=== PATIENT | male | born 1935 | race Caucasian/White ===

== ENCOUNTER 2018-01-24 06:21 | Inpatient (IN) | payer OTHER ==
[2017-12-29 12:57] VITALS: BMI 29.0
--- NOTE | 2017-12-29 13:30 | PAT Medication Instructions ---
Service Date Dec 29, 2017. Current Home Medication List Amlodipine (Norvasc), 5 MG PO BID Calcium Ascorbate (Vitamin C), 500 MG PO QAM Calcium W/ Magnesium (Calcium Magnesium 750), 1 TAB PO BID Cod Liver Oil (Cod Liver Oil), 1 TAB PO QAM Zxsskoboofb-Lchvogwkwig-Wxi C- (Glucosamine Chondroitin), 1 TAB PO BID Misc Natural Products (Pumpkin Seed Oil), 1 TAB PO BID Multivitamin (Multivitamin), 1 TAB PO QAM Medication Instructions For Your Scheduled Surgery - Hold the following medications 2 weeks prior to surgery: Cod Liver Oil (Cod Liver Oil), 1 TAB PO QAM Cvkhztmsaas-Sgrywrrwygb-Vdy C- (Glucosamine Chondroitin), 1 TAB PO BID Misc Natural Products (Pumpkin Seed Oil), 1 TAB PO BID - Hold the following medications the morning of surgery: Calcium Ascorbate (Vitamin C), 500 MG PO QAM Calcium W/ Magnesium (Calcium Magnesium 750), 1 TAB PO BID Multivitamin (Multivitamin), 1 TAB PO QAM - Take the following medications the morning of surgery with a sip of water: Amlodipine (Norvasc), 5 MG PO BID - Take the following medications as scheduled the night before surgery: Calcium W/ Magnesium (Calcium Magnesium 750), 1 TAB PO BID If you have any questions please call us at [phone] or [phone] or [phone]
--- NOTE | 2017-12-29 14:15 | DIAGNOSTIC IMAGING REPORT ---
CHEST 2 VIEWS ROUTINE CLINICAL HISTORY: 82 years-old Male presenting with preoperative assessment. TECHNIQUE: PA and lateral views of the chest were obtained. COMPARISON: None. FINDINGS: Atherosclerosis of the aortic arch. Tortuosity of the descending thoracic aorta. Cardiac silhouette normal in size. Minimal basilar opacities. No pleural effusion or pneumothorax. Osseous structures normal. Upper abdomen normal. IMPRESSION: 1. No acute cardiopulmonary disease. Electronically signed by: Tremaine Nixon M.D. 12/29/2017 2:13 PM Dictated Date/Time: 12/29/2017 2:13 PM
[2017-12-29 14:37] LABS: BASO % 0.2 %; BASO ABS # 0.01 K/uL (0-0.2); EOS ABS # 0.05 K/uL (0-0.5); HEMATOCRIT 38.6 % (42-52); HEMOGLOBIN 13.3 g/dL (14.0-18.0); IG# 0.02 K/uL (0.00-0.02); LYMPH % 23.9 %; LYMPH ABS # 1.24 K/uL (1.2-3.4); MEAN CELL VOLUME 93.9 fL (80-100); MEAN CORPUSCULAR HEMOGLOBIN 32.4 pg (25-34); MEAN CORPUSCULAR HGB CONC 34.5 g/dl (32-36); MEAN PLATELET VOLUME 10.2 fL (7.4-10.4); MONO % 16.8 %; MONO ABS # 0.87 K/uL (0.11-0.59); NEUT % 57.7 %; PLATELET COUNT 108 K/uL (130-400); RED CELL DISTRIBUTION WIDTH CV 12.6 % (11.5-14.5); WHITE BLOOD COUNT 5.19 K/uL (4.8-10.8)
[2017-12-29 15:33] LABS: CALCIUM 9.6 mg/dl (8.5-10.1); CREATININE 1.62 mg/dl (0.60-1.40); POTASSIUM 4.3 mmol/L (3.5-5.1)
[~2018-01-24] VITALS: Ht 175.3 cm; Wt 90.2 kg
[2018-01-24] VITALS (10 sets, daily range): BP systolic 100–148; BP diastolic 62–79; PULSE 59–85; TEMP 36.2–36.6; O2SAT 90–96; Ht 175.3 cm; Wt 90.2 kg
[~2018-01-24 06:21] MED LIST: AMLO-110 PO; CALC1TAB25 PO; CALC500T72 PO; CEFAZOLIN 2000MG IV PUSH 15 ML IV SCH; CODCAP4 PO; GLUCTAB7 PO; LACTATED RINGER'S 1000ML 1,000 ML IV SCH; MISCCAP3 PO; MULT-506 PO
[2018-01-24] MEDS ORDERED: MIDAZOLAM HCL 1 MG/ML 2ML VIAL ONE (06:38)
[2018-01-24] MEDS ORDERED: FENTANYL CITRATE INJ 50 MCG/1 ML 2 ML VIAL ONE ×3 (06:38→09:08)
[2018-01-24] MEDS ORDERED: BUPIVACAINE/EPINEPHRINE 0.5% MPF 1:200,000 30 ML VIAL ONE (06:57)
[2018-01-24] MEDS ORDERED: BACITRACIN 50000 UNIT VIAL ONE (06:57)
[2018-01-24] MEDS ORDERED: LISI-729 PO (07:22)
--- NOTE | 2018-01-24 07:26 | History & Physical Bridge Note ---
H&P Re-Evaluation Bridge Note: I have examined the patient, reviewed the History & Physical and in the interval since the performance of the History & Physical I have noted the following changes of clinical significance: No changes noted
--- NOTE | 2018-01-24 07:27 | History and Physical ---
History & Physical Date Jan 24, 2018. Chief Complaint Back and leg pain History of Present Illness The patient is a 82 year old male with complaints of back and leg pain Additional History Hepatic Disease: No Endocrine Disorder: No Kidney Disease: No Hypertension: Yes Heart Disease: No Bleeding Tendencies: No Infectious Diseases: No Allergies Coded Allergies: No Known Allergies (Unverified , 01/24/18) Home Medications Scheduled Amlodipine (Norvasc), 10 MG PO DAILY Calcium Ascorbate (Vitamin C), 500 MG PO QAM Calcium W/ Magnesium (Calcium Magnesium 750), 1 TAB PO BID Cod Liver Oil (Cod Liver Oil), 1 TAB PO QAM Erpesfcbpgo-Knduyukzcsf-Hvy C- (Glucosamine Chondroitin), 1 TAB PO BID Lisinopril (Zestril), 5 MG PO DAILY Misc Natural Products (Pumpkin Seed Oil), 1 TAB PO BID Multivitamin (Multivitamin), 1 TAB PO QAM Physical Examination Skin: warm/dry, no rash Eyes: normal inspection, EOMI, sclerae normal ENT: normal ENT inspection, pharynx normal Head: normocephalic, atraumatic Neck: supple, no adenopathy, trachea midline Respiratory/Chest: lungs clear, normal breath sounds, no respiratory distress Cardiovascular: regular rate, rhythm, no edema, no murmur Abdomen / GI: normal bowel sounds, non tender Back: normal inspection Extremities: normal inspection, normal range of motion Neurologic/Psych: no motor/sensory deficits, alert, normal reflexes, oriented x 3 Diagnosis Lumbar spinal stenosis Plan of Treatment Lumbar decompression and fusion L4-5
[2018-01-24] MEDS ORDERED: PROMETHAZINE HCL INJ 6.25 MG in SODIUM CHLORIDE 0.9% 50ML 50 ML IV PRN (07:30)
[2018-01-24] MEDS ORDERED: HYDROmorphone INJ 1 MG/ML SYR IV PRN (07:30)
[2018-01-24] MEDS ORDERED: FENTANYL CITRATE INJ 50 MCG/1 ML 2 ML VIAL IV PRN (07:30)
[2018-01-24] MEDS ORDERED: EpHEDrine SULFATE INJ 50 MG/ML AMP IV PRN (07:30)
[2018-01-24] MEDS ORDERED: ONDANSETRON INJ 2 MG/ML 2 ML VIAL IV PRN ×2 (07:30→09:15)
[2018-01-24] MEDS ORDERED: ATROPINE SULFATE 0.1 MG/ML 5ML SYR IV PRN (07:30)
[2018-01-24] MEDS ORDERED: HYDROmorphone INJ 2 MG/ML SYR/VIAL ONE (07:57)
[2018-01-24] MEDS ORDERED: FLOSEAL HEMOSTATIC MATRIX 10ML TOP ONE (08:58)
--- NOTE | 2018-01-24 09:06 | [facility] Operative Report ---
Operative Report Operative Date Jan 24, 2018. Pre-Operative Diagnosis Lumbar Spinal Stenosis Post-Operative Diagnosis Lumbar Spinal Stenosis Procedure(s) Performed 1. Lumbar decompression medial facetectomies foraminotomies L3-4 L4-5. #2 posterior spinal fusion L4-5. #3 placement posterior instrumentation L4-5. #4 interbody fusion L4-5. #5 placement peek cage 13 x 26 mm at L4-5. #6 placement of locally harvested morselized autograft in the posterior lateral gutters. #7 placement of infuse collagen sponge, Nast graft in the posterior lateral gutters and ostial amp in the interbody space. Surgeon Dr. Mendoza Leach Conditioning Machine Operator Surgeon(s) Ashlee Rodriguez PA-C Estimated Blood Loss 125ml Findings Severe spinal stenosis Specimens None per surgeon Anesthesia Type General Description of Procedure Patient was met with preoperatively case discussed all questions addressed. After informed consent obtained patient was taken to the operative suite underwent intubation and placed in a prone position on the Arnoldo table on top of the Julius frame. All bony prominences were well-padded eyes inspected to ensure no external pressure placed upon the. This point the lumbar spine was prepped and draped in normal sterile fashion. Sharp dissection with the assistance of Bovie cautery was performed down to and exposing the lamina and transverse processes of L4 and L5 bilaterally. From a caudocephalad fashion complete laminectomy of L4 partial laminectomy of L3 was performed addressing severe lateral recess and foraminal stenosis. Pedicle screws were then placed in L4 and L5 bilaterally with the assistance of fluoroscopy and the purposes sinai placed. Through a transforaminal approach on left complete discectomy of L4 -5 was performed endplates created to subcortical bleeding bone and a 13 x 26 mm peek cage filled with ostium bone graft tapped in position. The rods were then locked in final position bilaterally. The transverse processes of L4 and L5 burred to subcortical bleeding bone. Infuse collagen sponge mesh graft and locally harvested morselized autograft was placed in the posterior gutters. 15 round STANISLAW drain was inserted. Incision was then closed with 1 Vicryl fascia 2-0 Vicryl subcutaneously 4-0 Monocryl for fashion closure Steri-Strips sterile dressings placed. Patient weakened taken PACU stable condition. Please note Ashlee Multani was present throughout the entire procedure involved in patient positioning complex portions of the surgery and fashion closure. I attest to the content of the Intraoperative Record and any orders documented therein. Any exceptions are noted below.
[2018-01-24] MEDS ORDERED: SODIUM CHLORIDE 0.9% 1000ML 1,000 ML IV SCH (09:07)
[2018-01-24] MEDS ORDERED: PROPOFOL IV EMULSION 10 MG/ML 20 ML VIAL IV ONE (09:10)
[2018-01-24] MEDS ORDERED: EpHEDrine SULFATE 50MG/5ML SYR ONE (09:10)
[2018-01-24] MEDS ORDERED: LIDOCAINE HCL 2% 2 ML VIAL (20MG/ML) ONE (09:10)
[2018-01-24] MEDS ORDERED: PHENYLEPHRINE 100MCG/ML 5ML SYR ONE (09:10)
[2018-01-24] MEDS ORDERED: ROCURONIUM BROMIDE 10 MG/ML 5 ML VIAL IV ONE (09:10)
[2018-01-24] MEDS ORDERED: DEXAMETHASONE SOD INJ 4 MG/ML VIAL ONE (09:10)
[2018-01-24] MEDS ORDERED: ONDANSETRON INJ 2 MG/ML 2 ML VIAL ONE (09:10)
[2018-01-24] MEDS ORDERED: NEOSTIGMINE METHYLSULFATE 1 MG/ML 10ML VIAL ONE (09:10)
[2018-01-24] MEDS ORDERED: GLYCOPYRROLATE INJ 0.2 MG/ML VIAL ONE (09:10)
[2018-01-24] MEDS ORDERED: DO NOT ADMINISTER FLU VACCINE PRN (09:15)
[2018-01-24] MEDS ORDERED: DO NOT ADMINISTER PNEUMOCOCCAL VACCINE PRN (09:15)
[2018-01-24] MEDS ORDERED: ACETAMINOPHEN IV 100 ML IV PRN (09:15)
[2018-01-24] MEDS ORDERED: NALOXONE HCL 0.4 MG/1 ML VIAL/CARP IV PRN (09:15)
[2018-01-24] MEDS ORDERED: hydrOXYzine HCL 25 MG TAB PO PRN (09:15)
[2018-01-24] MEDS ORDERED: BISACODYL 10 MG SUPP PR PRN (09:15)
[2018-01-24] MEDS ORDERED: ACETAMINOPHEN 500 MG TAB PO PRN (09:15)
[2018-01-24] MEDS ORDERED: MAGNESIUM HYDROXIDE SUSP 30 ML UDC PO PRN (09:15)
[2018-01-24] MEDS ORDERED: LORAZEPAM 0.5 MG TAB PO PRN (09:15)
[2018-01-24] MEDS ORDERED: PROMETHAZINE HCL INJ 12.5 MG in SODIUM CHLORIDE 0.9% 50ML 50 ML IV PRN (09:15)
[2018-01-24] MEDS ORDERED: ALUMINUM/MAGNESIUM SUSP 30 ML UDC PO PRN (09:15)
[2018-01-24] MEDS ORDERED: FAMOTIDINE 20 MG TAB PO PRN (09:15)
[2018-01-24] MEDS ORDERED: METOCLOPRAMIDE HCL INJ 5 MG/ML 2 ML VIAL IV PRN (09:15)
[2018-01-24] MEDS ORDERED: SOD PHOSPHATE/SOD BIPHOSPHATE ENEMA 132 ML BTL PR PRN (09:15)
[2018-01-24] MEDS ORDERED: LORAZEPAM INJ 0.5 MG in SYRINGE 0.75 ML IV PRN (09:15)
[2018-01-24] MEDS ORDERED: HYDROmorphone HCL 0.5MG/ML 50 ML CASSETTE ONE (09:22)
--- NOTE | 2018-01-24 09:28 | DIAGNOSTIC IMAGING REPORT ---
LUMBAR SPINE, INTRAOPERATIVE FLUOROSCOPY HISTORY: L4-L5 decompression and fusion. FLUOROSCOPY TIME: 12 seconds. FINDINGS: Intraoperative fluoroscopy was provided for the lumbar spine. 2 fluoroscopic spot images were obtained. Posterior decompression and fusion at L4-L5 with pedicle screws and rods. The hardware appears intact. IMPRESSION: Fluoroscopy provided for a L4-L5 posterior decompression and fusion.. Electronically signed by: Antoine Anguiano M.D. 01/24/2018 9:27 AM Dictated Date/Time: 01/24/2018 9:26 AM
[2018-01-24] MEDS: HYDROmorphone HCL 0.5MG/ML 50 ML CASSETTE IV PRN ×4 (09:31→22:58)
--- NOTE | 2018-01-24 10:02 | Anesthesiology Progress Note ---
Anesthesia Post Op Note Date & Time Jan 24, 2018 at 10:02 Vital Signs Pain Intensity: 0 Vital Signs Past 12 Hours Date Time Temp Pulse Resp B/P (MAP) Pulse Ox O2 Delivery O2 Flow Rate FiO2 01/24/18 09:52 68 14 01/24/18 09:52 67 14 94 01/24/18 09:51 116/65 01/24/18 09:47 68 15 95 01/24/18 09:47 68 15 01/24/18 09:46 123/67 01/24/18 09:42 66 14 01/24/18 09:42 66 14 95 01/24/18 09:41 121/69 01/24/18 09:40 71 19 01/24/18 09:40 71 19 96 01/24/18 09:36 126/72 01/24/18 09:35 75 18 01/24/18 09:35 75 18 96 01/24/18 09:31 125/68 01/24/18 09:30 78 19 97 01/24/18 09:30 80 19 01/24/18 09:26 118/74 01/24/18 09:25 87 13 97 01/24/18 09:25 88 13 01/24/18 09:21 132/70 01/24/18 09:20 90 15 01/24/18 09:20 36.0 89 16 132/70 98 Oxymask 10 01/24/18 09:20 91 15 98 01/24/18 06:51 36.6 18 148/79 94 Room Air Notes Mental Status: alert / awake / arousable, participated in evaluation Pt Amnestic to Procedure: Yes Nausea / Vomiting: adequately controlled Pain: adequately controlled Airway Patency, RR, SpO2: stable & adequate BP & HR: stable & adequate Hydration State: stable & adequate Anesthetic Complications: no major complications apparent
[2018-01-24] MEDS ORDERED: ESMOLOL HCL 10 MG/ML 10 ML VIAL ONE (11:45)
[2018-01-24] MEDS ORDERED: AMLO-114 PO (11:47)
--- NOTE | 2018-01-24 11:55 | Medical Consult ---
Consultation Date of Consultation: Jan 24, 2018. Attending Physician: Mendoza Leach D.O. Reason for Consultation: Medical management History of Present Illness Pt is 82 y/o M with PMH HTN seen for medical management after Lumbar decompression and spinal fusion by Dr Leach today. Patient reports pain is controlled at this time and reports having return of sensation to bilateral legs. Patient reports last BM yesterday, has not felt like he passed gas yet since surgery. Denies any nausea or vomiting. Denies fever/chills, diaphoresis , COLEY, dizziness, syncope, vision changes, neck pain, CP, SOB, orthopnea, palpitations, cough, sore throat, choking, otalgia, rhinorrhea, abdominal pain, paresthesias, extremity edema, rashes, urinary symptoms. 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 Alcohol Use: Rarely Drug Use: none Marital Status: Housing Status: lives with significant other Allergies Coded Allergies: No Known Allergies (Unverified , 01/24/18) Current Inpatient Medications Current Inpatient Medications Medications (Trade) Dose Ordered Sig/Kenneth Route Start Time Stop Time Status Last Admin Dose Admin Cefazolin Sodium 15 ml @ 3.75 mls/ min PREOP IV 01/24/18 06:00 01/24/18 18:00 01/24/18 07:34 3.75 MLS/MIN Lactated Ringer's 1,000 ml @ 15 mls/hr Q24H IV 01/24/18 06:00 01/25/18 05:59 01/24/18 07:13 15 MLS/HR Fentanyl Citrate (Fentanyl Inj) 50 mcg Q5M PRN IV 01/24/18 07:30 01/24/18 12:30 Hydromorphone HCl (Dilaudid Inj) 0.5 mg Q5M PRN IV 01/24/18 07:30 01/24/18 12:30 Ondansetron HCl (Zofran Inj) 4 mg ONE PRN IV 01/24/18 07:30 01/24/18 12:30 Promethazine HCl 6.25 mg/Sodium Chloride 50.25 ml @ 202 mls/hr ONE PRN IV 01/24/18 07:30 01/24/18 12:30 Ephedrine Sulfate (EpHEDrine SULFATE INJ) 5 mg Q5M PRN IV 01/24/18 07:30 01/24/18 12:30 Atropine Sulfate (Atropine Sulfate 0.1mg/ml Inj) 0.5 mg Q1M PRN IV 01/24/18 07:30 01/24/18 12:30 Promethazine HCl 12.5 mg/Sodium Chloride 50.5 ml @ 202 mls/hr Q6H PRN IV 01/24/18 09:15 02/23/18 09:14 Ondansetron HCl (Zofran Inj) 4 mg Q6H PRN IV 01/24/18 09:15 02/23/18 09:14 Metoclopramide HCl (Reglan Inj) 10 mg Q6H PRN IV 01/24/18 09:15 02/23/18 09:14 Lorazepam (Ativan Tab) 0.5 mg Q8H PRN PO 01/24/18 09:15 02/23/18 09:14 Lorazepam 0.5 mg/ Syringe 1 ml @ 1 mls/min Q8H PRN IV 01/24/18 09:15 02/23/18 09:14 Pneumococcal Polysaccharide Vaccine 1 ea PRN PRN N/A 01/24/18 09:15 02/23/18 09:14 Influenza Virus Vacc Triv Types A&B 1 ea PRN PRN N/A 01/24/18 09:15 02/23/18 09:14 Polyethylene (Miralax Powder Packet) 17 gm Q6 PO 01/26/18 06:00 02/25/18 05:59 Bisacodyl (Dulcolax Supp) 10 mg DAILY PRN DC 01/24/18 09:15 02/23/18 09:14 Magnesium Hydroxide (Milk Of Magnesia Susp) 30 ml DAILY PRN PO 01/24/18 09:15 02/23/18 09:14 Hydromorphone HCl (Dilaudid Inj) 0.5-1mg prn moder... Q3H PRN IV 01/25/18 06:00 02/08/18 05:59 Oxycodone HCl (Roxicodone Immediate Rel Tab) 5-10mg prn moderate to sev... Q4H PRN PO 01/25/18 06:00 02/08/18 05:59 Cefazolin Sodium 2000 mg/Syringe 15 ml @ 3.75 mls/ min Q8H IV 01/24/18 16:00 01/25/18 00:03 Sodium Chloride 1,000 ml @ 150 mls/hr Q6H40M IV 01/24/18 09:07 01/25/18 06:00 Acetaminophen (Tylenol Tab) 1,000 mg Q8H PRN PO 01/24/18 09:15 02/23/18 09:14 Acetaminophen 100 ml @ 400 mls/hr Q8H PRN IV 01/24/18 09:15 02/23/18 09:14 Naloxone HCl (Narcan Inj) 0.1 mg Q5M PRN IV 01/25/18 06:00 02/24/18 05:59 Senna/Docusate Sodium (Senokot S Tab) 2 tab HS PO 01/24/18 21:00 02/23/18 20:59 Sodium Biphosphate/ Sodium Phosphate (Fleet Enema) 132 ml ONE PRN DC 01/24/18 09:15 02/23/18 09:14 Hydroxyzine HCl (Vistaril Tab) 25 mg Q8H PRN PO 01/24/18 09:15 02/23/18 09:14 Al Hydroxide/Mg Hydroxide (Maalox Susp) 30 ml Q6H PRN PO 01/24/18 09:15 02/23/18 09:14 Famotidine (Pepcid Tab) 20 mg Q12 PRN PO 01/24/18 09:15 02/23/18 09:14 Diphenhydramine HCl (Benadryl Cap) 25 mg Q6H PRN PO 01/24/18 09:15 02/23/18 09:14 Miscellaneous Information (Discontinue RESEARCH INTERVIEWER) 1 ea TODAY@0600 N/A 01/25/18 06:00 01/25/18 06:01 Naloxone HCl (Narcan Inj) 0.1 mg Q5M PRN IV 01/24/18 09:15 01/25/18 06:00 Hydromorphone HCl (Dilaudid Pharmacy Clinical Specialist) 25 mg PRN PRN IV 01/24/18 09:15 01/25/18 06:00 01/24/18 10:32 25 MG Sodium Chloride 1,000 ml @ 15 mls/hr Q24H IV 01/24/18 09:07 01/25/18 06:00 Amlodipine Besylate (Norvasc Tab) 10 mg DAILY PO 01/25/18 09:00 02/24/18 08:59 Lisinopril (Zestril Tab) 5 mg DAILY PO 01/25/18 09:00 02/24/18 08:59 Review of Systems See HPI for pertinent positives & negatives. All other systems reviewed and were otherwise negative Physical Exam Date Time Temp Pulse Resp B/P (MAP) Pulse Ox O2 Delivery O2 Flow Rate FiO2 01/24/18 11:04 61 16 118/67 (84) 95 Nasal Cannula 4.0 01/24/18 10:35 93 Nasal Cannula 4.0 01/24/18 10:35 Nasal Cannula 4.0 01/24/18 10:35 36.4 60 16 119/67 (84) 93 Nasal Cannula 4.0 01/24/18 10:21 118/64 01/24/18 10:18 59 14 94 01/24/18 10:18 59 14 01/24/18 10:16 120/63 01/24/18 10:13 59 14 01/24/18 10:13 60 14 94 01/24/18 10:12 60 17 94 01/24/18 10:12 60 17 01/24/18 10:11 115/63 01/24/18 10:11 36.3 95 Nasal Cannula 4 01/24/18 10:07 60 16 01/24/18 10:07 60 16 94 01/24/18 10:06 119/63 01/24/18 10:02 61 16 01/24/18 10:02 60 16 94 01/24/18 10:01 116/66 01/24/18 09:58 65 17 01/24/18 09:58 65 17 94 01/24/18 09:56 117/66 01/24/18 09:53 68 17 97 01/24/18 09:53 68 17 01/24/18 09:52 68 14 01/24/18 09:52 67 14 94 01/24/18 09:51 116/65 01/24/18 09:47 68 15 95 01/24/18 09:47 68 15 01/24/18 09:46 123/67 01/24/18 09:42 66 14 01/24/18 09:42 66 14 95 01/24/18 09:41 121/69 01/24/18 09:40 71 19 01/24/18 09:40 71 19 96 01/24/18 09:36 126/72 01/24/18 09:35 75 18 01/24/18 09:35 75 18 96 01/24/18 09:31 125/68 01/24/18 09:30 78 19 97 01/24/18 09:30 80 19 01/24/18 09:26 118/74 01/24/18 09:25 87 13 97 01/24/18 09:25 88 13 01/24/18 09:21 132/70 01/24/18 09:20 90 15 01/24/18 09:20 36.0 89 16 132/70 98 Oxymask 10 01/24/18 09:20 91 15 98 01/24/18 06:51 36.6 18 148/79 94 Room Air General Appearance: WD/WN, no apparent distress Head: normocephalic, atraumatic Eyes: normal inspection, sclerae normal ENT: hearing grossly normal, pharynx normal, + pertinent finding (Mucous membranes moist) Neck: supple, no JVD, trachea midline Respiratory/Chest: lungs clear, normal breath sounds, no respiratory distress Cardiovascular: regular rate, rhythm, no murmur, normal peripheral pulses Abdomen/GI: normal bowel sounds, non tender, soft Back: + pertinent finding (Surgical dressing in place) Extremities/Musculoskelatal: normal inspection, normal capillary refill, no pedal edema, + pertinent finding (Distal pulses intact. Sensation to light touch intact. Bilateral pedal pushes and pulls intact) Neurologic/Psych: alert, normal mood/affect, oriented x 3 Skin: normal color, warm/dry Assessment & Plan Pt post op day# 0 S/P lumbar decompression L3-L4, L4-L5, spinal fusion by Dr Leach -pain management per ortho -wound management per ortho -PT/OT as appropriate -DVT prophylaxis per ortho -incentive spirometry -monitor H&H for acute blood loss anemia HTN BP stable -Continue amlodipine, lisinopril CKD III Cr: 1.6, GFR: 39 on 12/29/17 -Monitor renal functions -Avoid nephrotoxic agents when possible -if worsening renal functions tomorrow, consider holding lisinopril DVT Prophylaxis -Per ortho Disposition admitted [facility] Full Code Follows with Dr Adriel Lyn for routine care Pt was seen with Dr Villarreal. See addendum. Pt will be followed by Dr Carvalho remaining hospital course. ADDENDUM: I have seen and examined the patient and agree with the assessment and plan as above. Phil, DO Additional Copies To Adriel Lyn D.O.
[2018-01-24] MEDS ORDERED: RXC5 PO (14:35)
--- NOTE | 2018-01-24 14:36 | Discharge Instructions ---
Discharge Instructions Date of Service Jan 24, 2018. Admission Reason for Admission: Spinal Stenosis Discharge Discharge Diagnosis / Problem: lumbar stenosis Discharge Goals Goal(s): Improve function Activity Recommendations Activity Limitations: per Instructions/Follow-up section . Instructions / Follow-Up Instructions / Follow-Up ACTIVITY RECOMMENDATIONS: SELF CARE INSTRUCTIONS AFTER THORACIC/LUMBAR FUSIONS 1. You may walk to your tolerance. It is good exercise for your legs and back. Expect some back and intermittent leg aches and pains. 2. You may perform "counter-top" level activities (make a sandwich, obed with a project, etc.). 3. No bending or lifting of more than 10 pounds or back twisting of any nature (roll like a log when turning in bed). 4. You may ride in a car for 20-30 minutes at a time. No driving until after your first visit with your doctor. 5. Frequent changes of position and restricting sitting to 30 minutes at a time will help limit the amount of back spasms and stiffness you may experience. 6. You may discontinue the use of ambulatory aids (cane, crutches, etc.) once your strength and confidence allow. 7. You may coal dumping equipment operator the shower and let water strike your incision when you arrive home at least once daily. Do not take a tub bath, sit in a hot tub or go into a swimming pool until after your first recheck in the office. SPECIAL CARE INSTRUCTIONS: VERY IMPORTANT TO READ AND REVIEW A. Your surgical incision has been closed with a cosmetic suture under the skin that will dissolve in about 6 weeks. In 14 days, you can use a pair of clean scissors and cut the suture that is left outside of the skin at the ends of your incision. 1. The small skin tapes can be removed 7 days after surgery if they have not fallen off by that point. 2. You may keep the wound open to air as much as possible to promote healing after post-op day number 5 unless told otherwise by your doctor. 3. If you think the wound looks like it is becoming infected (redness or worsening drainage) and/or you are experiencing fever, chill or worsening back pain and muscle spasms, contact the office so that we may evaluate you as soon as possible. B. Complications are uncommon, but please contact us if you have any signs or symptoms of: 1. wound infection (fever higher than 102.5 degrees F, redness, separation of wound, drainage, or increasing pain from the incision) 2. blood clots in legs (pain, swelling, redness and warmth in legs) 3. urinary tract infection (fever higher than 102.5 degrees F, burning upon urination or increased frequency of urination) 4. nerve problems (inability to walk on your toes or heels, numbness, loss of bowel or bladder control) 5. any other symptoms that concern you C. Please call the office at if you have any concerns or questions about your operation or recovery. D. No smoking! Smoking drastically decreases the chance of a solid fusion. E. Do not take any anti-inflammatory medications (Indocin, Advil, Motrin, Aspirin, Naprosyn, etc.) as these may inhibit the chance of a solid fusion. Tylenol is okay to take for pain. MANAGING PAIN AFTER SPINAL SURGERY 1. Narcotic medication is intended for short-term use and will be provided for surgical pain. Surgical pain usually lasts for a period of 4-6 weeks. Narcotic medication includes Percocet, Vicodin, Darvocet, Tylenol #3 or Lortab. 2. Longer-term pain is more appropriately treated with non-narcotic medication such as Tylenol ES. 3. Muscle spasm is not appropriately treated with narcotics. Muscle relaxers such as Soma, Flexeril or Skelaxin can be used along with Tylenol ES. 4. Remember that we all live with some "aches and pains". This is not unusual or uncommon after an injury or as we get older. a. Back pain is expected and may include muscle spasms for 4 to 6 weeks after surgery. The pain should gradually improve. If the pain worsens for no apparent reason, please contact the office. b. Intermittent leg pain may also be experienced and should not be concerned about unless it worsens for no apparent reason. If so, please contact the office. 5. We will provide appropriate medication within the normal guidelines of their prescribed use. We will also be very cautious and aware of potential abuse and extended duration of patients' medication needs. a. Pain medications are for your comfort and to assist with sleep and rest so that the tissue can heal. They are not provided in order to return to normal activity and should not be used through the day. To do so or worsening pain at night can result from ongoing tissue damage and development of tolerance to the prescribed medicine. 6. Please allow 2-3 days to process refills. Prescriptions will not be mailed but must be picked up at the office. FOLLOW UP VISIT: Keep your scheduled follow-up appointment. Any questions, please call the office at . Current Hospital Diet Patient's current hospital diet: Regular Diet Discharge Diet Recommended Diet: Regular Diet Procedures Procedures Performed: 1. Lumbar decompression medial facetectomies foraminotomies L3-4 L4-5. #2 posterior spinal fusion L4-5. #3 placement posterior instrumentation L4-5. #4 interbody fusion L4-5. #5 placement peek cage 13 x 26 mm at L4-5. #6 placement of locally harvested morselized autograft in the posterior lateral gutters. #7 placement of infuse collagen sponge, Nast graft in the posterior lateral gutters and ostial amp in the interbody space. Pending Studies Studies pending at discharge: no Medical Emergencies . Who to Call and When: Medical Emergencies: If at any time you feel your situation is an emergency, please call 911 immediately. . Non-Emergent Contact Non-Emergency issues call your: Primary Care Provider . "Provider Documentation" section prepared by Mendoza Leach. .
[2018-01-24] MEDS: CEFAZOLIN IV 2,000 MG in SYRINGE 0 ML IV SCH (15:50)
[2018-01-24] MEDS: SODIUM CHLORIDE 0.9% 1000ML 1,000 ML IV SCH ×2 (15:50→22:11)
[2018-01-24] MEDS ORDERED: COUGH DROP (SUGAR FREE) LOZ 24 LOZ/1 BOX LOZ ONE (18:41)
[2018-01-24] MEDS ORDERED: COUGH DROP (SUGAR FREE) LOZ 24 LOZ/1 BOX LOZ PRN (19:00)
[2018-01-24] MEDS ORDERED: NURSING DECISION MEDICATION ORDER SCH (19:00)
[2018-01-24] MEDS: DOCUSATE SODIUM/SENNA 50/8.6MG TAB PO SCH (20:45)
[2018-01-25] MEDS: CEFAZOLIN IV 2,000 MG in SYRINGE 0 ML IV SCH (00:21)
[2018-01-25 02:55] VITALS: BP 142/69; PULSE 77; TEMP 36.4; O2SAT 94
[2018-01-25] MEDS: SODIUM CHLORIDE 0.9% 1000ML 1,000 ML IV SCH ×2 (04:46→19:44)
[2018-01-25] MEDS ORDERED: NURSING VERBAL MED ORDER ONE ×2 (05:45→21:00)
[2018-01-25] MEDS ORDERED: NALOXONE HCL 0.4 MG/1 ML VIAL/CARP IV PRN (06:00)
[2018-01-25] MEDS ORDERED: DC PCA SCH (06:00)
[2018-01-25] MEDS ORDERED: OXYCODONE HCL IR 5 MG TAB (IMMEDIATE RELEASE) PO PRN (06:00)
[2018-01-25] MEDS ORDERED: HYDROmorphone INJ 0.5 MG/0.5 ML SYR IV PRN (06:00)
[2018-01-25 06:30] LABS: HEMATOCRIT 28.3 % (42-52); HEMOGLOBIN 9.9 g/dL (14.0-18.0); IG# 0.04 K/uL (0.00-0.02); LYMPH % 8.8 %; LYMPH ABS # 0.73 K/uL (1.2-3.4); MEAN CELL VOLUME 93.4 fL (80-100); MEAN CORPUSCULAR HEMOGLOBIN 32.7 pg (25-34); MEAN PLATELET VOLUME 9.9 fL (7.4-10.4); MONO % 13.3 %; NEUT % 77.4 %; NEUT ABS # 6.43 K/uL (1.4-6.5); PLATELET COUNT 101 K/uL (130-400); RED CELL DISTRIBUTION WIDTH SD 40.6 fL (36.4-46.3)
[2018-01-25 07:02] LABS: CALCIUM 8.2 mg/dl (8.5-10.1); CREATININE 1.74 mg/dl (0.60-1.40); POTASSIUM 4.6 mmol/L (3.5-5.1)
[2018-01-25 07:15] VITALS: BP 125/70; PULSE 80; TEMP 36.5; O2SAT 92
--- NOTE | 2018-01-25 07:44 | Anesthesiology Progress Note ---
Anesthesia Post Op Note Date & Time Jan 25, 2018 at 07:43 Vital Signs Vital Signs Past 12 Hours Date Time Temp Pulse Resp B/P (MAP) Pulse Ox O2 Delivery O2 Flow Rate FiO2 01/25/18 07:15 36.5 80 18 125/70 (88) 92 Room Air 01/25/18 02:55 36.4 77 18 142/69 (93) 94 Room Air 01/25/18 00:20 Room Air 01/24/18 22:54 36.4 85 16 115/64 (81) 90 Room Air 01/24/18 20:07 36.2 82 16 142/66 (91) 96 Room Air Notes Mental Status: alert / awake / arousable, participated in evaluation Pt Amnestic to Procedure: Yes Nausea / Vomiting: adequately controlled Pain: adequately controlled Airway Patency, RR, SpO2: stable & adequate BP & HR: stable & adequate Hydration State: stable & adequate Anesthetic Complications: no major complications apparent
--- NOTE | 2018-01-25 08:16 | Clinical Documentation Query ---
CLINICAL DOCUMENTATION QUERY 82 yo male admitted for spinal fusion. Post-surgical hgb = 9.9, trending down from initial 13. In your clinical opinion is this patient being managed for: ( x ) Acute blood loss anemia ( ) Not Agree ( ) Other explanation of clinical findings (Please Explain) ( ) Unable to determine (Please Define) ( ) Need to Discuss The medical record reflects the following clinical findings, treatment, and risk factors. Clinical Indicators: As above Treatment: Serial CBCs, type and screen 2 units PRBCs Risk Factors: Age, s/p surgical event Please clarify and document your clinical opinion in the progress notes and discharge summary. Terms such as "probable", "suspected", "likely", "questionable", "possible", or "still to be ruled out" are acceptable. IF IN AGREEMENT, YOU MUST DOCUMENT ABOVE DIAGNOSTIC STATEMENT IN DAILY PROGRESS NOTES AND DISCHARGE SUMMARY. This document is not part of the patient's record. Thank You, Adamaris Malone RN [phone]
[2018-01-25 08:40] VITALS: BP 107/60; PULSE 94
[2018-01-25] MEDS: LISINOPRIL 5 MG TAB PO SCH (08:41)
[2018-01-25] MEDS: AMLODIPINE BESYLATE 5 MG TAB PO SCH (08:42)
[2018-01-25] MEDS ORDERED: AMLODIPINE BESYLATE 5 MG TAB PO SCH (09:00)
--- NOTE | 2018-01-25 13:27 | Progress Note ---
Progress Note Date of Service Jan 25, 2018. Progress Note Back pain is controlled leg symptoms are markedly improved. On exam he is in a chair at the bedside has good strength testing appears comfortable. Assessment status post lumbar decompression fusion. Plan at this time will continue physical therapy advance his bowel regiment anticipate home tomorrow.
[2018-01-25] MEDS ORDERED: KETOROLAC TROMETHAMINE 15 MG/ML VIAL IV. PRN (13:30)
[2018-01-25 16:28] VITALS: BP 120/70; PULSE 73; TEMP 36.3; O2SAT 91
--- NOTE | 2018-01-25 18:51 | Progress Note ---
Progress Note Date of Service Jan 25, 2018. Progress Note Medical consultation follow up note Subjective: Patient is not in acute distress, Is ambulatory and not in pain General Appearance: no apparent distress Head: normocephalic, atraumatic Eyes: normal inspection, sclerae normal Neck: supple, no JVD, trachea midline Respiratory/Chest: lungs clear, normal breath sounds, no respiratory distress Cardiovascular: regular rate, rhythm, no murmur, normal peripheral pulses Abdomen/GI: normal bowel sounds, non tender, soft Back: Surgical dressing in place with STANISLAW drain draining serosanguineous fluid Extremities/Musculoskelatal: ambulatory Neurologic/Psych: alert, normal mood/affect, oriented x 3 Skin: normal color, warm/dry Assessment & Plan Lumbar Spinal Stenosis with Procedures Performed on 01/24/18 by orthopedics: 1. Lumbar decompression medial facetectomies foraminotomies L3-4 L4-5. #2 posterior spinal fusion L4-5. #3 placement posterior instrumentation L4-5. #4 interbody fusion L4-5. #5 placement peek cage 13 x 26 mm at L4-5. #6 placement of locally harvested morselized autograft in the posterior lateral gutters. #7 placement of infuse collagen sponge, Nast graft in the posterior lateral gutters and ostial amp in the interbody space. Anemia with Hgb 9.9 in a patient who is post-op and a STANISLAW drain with serosanguineous fluid -patient is asymptomatic and does not need blood transfusion for the blood loss anemia -DVT prophylaxis per ortho acute kidney injury on CKD stage III -patient would benefit from further IV fluids as creatine trended up from baseline, IV fluid 100cc/hr normal saline ordered -can continue lisinopril for blood pressure control HTN BP stable: Continue amlodipine, lisinopril
[2018-01-25] MEDS: DOCUSATE SODIUM/SENNA 50/8.6MG TAB PO SCH (20:57)
[2018-01-25 22:53] VITALS: BP 129/73; PULSE 71; TEMP 36.9; O2SAT 91
[2018-01-26] MEDS: SODIUM CHLORIDE 0.9% 1000ML 1,000 ML IV SCH ×2 (05:24→15:09)
[2018-01-26] MEDS ORDERED: POLYETHYLENE (MIRALAX) 17 GM PACK PO SCH (06:00)
[2018-01-26 07:34] VITALS: BP 136/74; PULSE 76; TEMP 36.8; O2SAT 92
[2018-01-26] MEDS: LISINOPRIL 5 MG TAB PO SCH (08:25)
[2018-01-26] MEDS: AMLODIPINE BESYLATE 5 MG TAB PO SCH (08:25)
[2018-01-26 10:28] LABS: HEMATOCRIT 29.4 % (42-52); MEAN CELL VOLUME 94.8 fL (80-100); MEAN CORPUSCULAR HEMOGLOBIN 32.3 pg (25-34); RED CELL DISTRIBUTION WIDTH CV 12.5 % (11.5-14.5); RED CELL DISTRIBUTION WIDTH SD 42.7 fL (36.4-46.3); WHITE BLOOD COUNT 9.94 K/uL (4.8-10.8)
[2018-01-26 10:48] LABS: CALCIUM 8.3 mg/dl (8.5-10.1); CREATININE 1.76 mg/dl (0.60-1.40); POTASSIUM 4.2 mmol/L (3.5-5.1)
[2018-01-26 10:49] LABS: MEAN PLATELET VOLUME 9.6 fL (7.4-10.4); PLATELET COUNT 97 K/uL (130-400)
--- NOTE | 2018-01-26 11:12 | Progress Note ---
Progress Note Date of Service Jan 26, 2018. Progress Note Patient's back pain is well controlled. Leg symptoms markedly improved. Vital signs stable. On exam he is ambulating well has good strength testing. Assessment status post lumbar decompression fusion. Plan at this time we will maintain the STANISLAW drain another 24 hours and anticipate discharge home tomorrow.
[2018-01-26 14:53] VITALS: BP 124/72; PULSE 75; TEMP 36.9; O2SAT 94
--- NOTE | 2018-01-26 15:44 | Progress Note ---
Progress Note Date of Service Jan 26, 2018. Progress Note Medical consultation follow up note Subjective: Patient is not in acute distress, Is ambulatory and not in pain General Appearance: no apparent distress Head: normocephalic, atraumatic Eyes: normal inspection, sclerae normal Neck: supple, no JVD, trachea midline Respiratory/Chest: lungs clear, normal breath sounds, no respiratory distress Cardiovascular: regular rate, rhythm, no murmur, normal peripheral pulses Abdomen/GI: normal bowel sounds, non tender, soft Back: Surgical dressing in place with STANISLAW drain draining serosanguineous fluid Extremities/Musculoskelatal: ambulatory Neurologic/Psych: alert, normal mood/affect, oriented x 3 Skin: normal color, warm/dry Assessment & Plan Lumbar Spinal Stenosis with Procedures Performed on 01/24/18 by orthopedics: 1. Lumbar decompression medial facetectomies foraminotomies L3-4 L4-5. #2 posterior spinal fusion L4-5. #3 placement posterior instrumentation L4-5. #4 interbody fusion L4-5. #5 placement peek cage 13 x 26 mm at L4-5. #6 placement of locally harvested morselized autograft in the posterior lateral gutters. #7 placement of infuse collagen sponge, Nast graft in the posterior lateral gutters and ostial amp in the interbody space. baseline preop CBC was 13.3 in December 2017 likely acute blood loss anemia as postop day 1 Hgb was 9.9, there is presence of STANISLAW drain with serosanguineous fluid which remains in place today on 01/26/18, stable anemia with Hgb 10 today on 01/26/18 -STANISLAW drain management as per orthopedics baseline preop creatinine 1.62 acute kidney injury on CKD stage III postop creatinine 1.74 and IV fluid 100cc/hr normal saline started, repeat creatinine 1.76 on 01/26/18, continue IV fluids if follow up renal lab on 01/26/18 with creatinine around the same level or less , then patient can be discharged and encouraged to drink oral fluids and follow up with primary care doctor when cleared by orthopedics HTN BP stable: Continue amlodipine, lisinopril DVT prophylaxis per ortho
[2018-01-26] MEDS: DOCUSATE SODIUM/SENNA 50/8.6MG TAB PO SCH (20:32)
[2018-01-26 22:56] VITALS: BP 147/76; PULSE 84; TEMP 37; O2SAT 91
[2018-01-27] MEDS: SODIUM CHLORIDE 0.9% 1000ML 1,000 ML IV SCH (00:50)
[2018-01-27 07:23] VITALS: BP 150/69; PULSE 73; TEMP 37; O2SAT 95
[2018-01-27 07:44] LABS: ALBUMIN 2.9 gm/dl (3.4-5.0); CALCIUM 8.4 mg/dl (8.5-10.1); CREATININE 1.52 mg/dl (0.60-1.40); PHOSPHORUS 3.1 mg/dl (2.5-4.9); POTASSIUM 4.3 mmol/L (3.5-5.1)
--- NOTE | 2018-01-27 08:18 | Discharge Summary ---
Orthopedic Discharge Summary Admission Date/Reason Jan 24, 2018 at 07:30 Spinal Stenosis. Discharge Date/Disposition Jan 27, 2018 Home Diagnosis Principal Diagnosis: Lumbar spinal stenosis with neurogenic claudication Admission Physical Exam As per Admitting History & Physical. Hospital Course Patient underwent lumbar decompression fusion tolerated this well was taken to the orthopedic floor postoperatively. Postop day #1 he was up and amatory progressed the postop day #2. STANISLAW drain decreased appropriately. Subsequently postop day #3 he was discharged home. Discharge orders and instructions can be found on the chart for further review. Discharge Instructions Please refer to the electronic Patient Visit Report (Discharge Instructions) for additional information.
[2018-01-27] MEDS: AMLODIPINE BESYLATE 5 MG TAB PO SCH (09:20)
[2018-01-27] MEDS: LISINOPRIL 5 MG TAB PO SCH (09:21)
[2018-01-27] MEDS ORDERED: NURSING VERBAL MED ORDER ONE (10:45)
--- NOTE | 2018-01-27 11:29 | Consultant Recommendations ---
Stationary Engineer Supervisor Recommendations Date of Service Jan 27, 2018. Stationary Engineer Supervisor Recommendations Medical consultation follow up note Subjective: Patient is not in acute distress. Off IV fluids General Appearance: no apparent distress Head: normocephalic, atraumatic Eyes: normal inspection, sclerae normal Neck: supple, no JVD, trachea midline Respiratory/Chest: lungs clear, normal breath sounds, no respiratory distress Cardiovascular: regular rate, rhythm, no murmur Abdomen/GI: normal bowel sounds, non tender, soft Back: Surgical dressing in place with STANISLAW drain draining serosanguineous fluid Extremities/Musculoskelatal: legs in stockings Neurologic/Psych: alert, normal mood/affect, oriented x 3 Skin: normal color, warm/dry Assessment & Plan Lumbar Spinal Stenosis with Procedures Performed on 01/24/18 by orthopedics: 1. Lumbar decompression medial facetectomies foraminotomies L3-4 L4-5. #2 posterior spinal fusion L4-5. #3 placement posterior instrumentation L4-5. #4 interbody fusion L4-5. #5 placement peek cage 13 x 26 mm at L4-5. #6 placement of locally harvested morselized autograft in the posterior lateral gutters. #7 placement of infuse collagen sponge, Nast graft in the posterior lateral gutters and ostial amp in the interbody space. baseline preop CBC was 13.3 in December 2017 likely had acute blood loss anemia as postop day 1 Hgb was 9.9, stable anemia with Hgb 10 today on 01/26/18, there is presence of STANISLAW drain with serosanguineous fluid which remains in place today on 01/27/18 STANISLAW drain management as per orthopedics baseline preop creatinine 1.62 acute kidney injury on CKD stage III postop creatinine 1.74 and IV fluid 100cc/hr normal saline started, repeat creatinine 1.76 on 01/26/18, creatinine improved as 1.52 on 01/27/18 and is now off IV fluids patient's acute kidney injury has resolved and should follow up with primary care doctor HTN: Continue amlodipine, lisinopril as outpatient Discharge as per orthopedics
[2018-01-27 12:12] VITALS: BP 150/69; PULSE 73; TEMP 37; O2SAT 95
== END 2018-01-27 14:30 | disposition home or self-care (01) | DRG 454 ==
LOC: C.ACU 06:21 → C.3E 07:30 → ENRESERV 09:42
PROVIDERS: ADMIT Orthopaedic Surgery Orthopaedic Surgery of the Spine; ATTEND Orthopaedic Surgery Orthopaedic Surgery of the Spine
PROC: 0ST20ZZ Resection of Lumbar Vertebral Disc, Open Approach (ICD-10-PCS; principal; 2018-01-24 07:45)
PROC: 01NB0ZZ Release Lumbar Nerve, Open Approach (ICD-10-PCS; principal; 2018-01-24 07:45)
PROC: 0SG0071 Fusion of Lumbar Vertebral Joint with Autologous Tissue Substitute, Posterior Approach, Posterior Column, Open Approach (ICD-10-PCS; principal; 2018-01-24 07:45)
PROC: 0SG00AJ Fusion of Lumbar Vertebral Joint with Interbody Fusion Device, Posterior Approach, Anterior Column, Open Approach (ICD-10-PCS; principal; 2018-01-24 07:45)
DX: M48.061 Spinal stenosis, lumbar region without neurogenic claudication (principal); N17.9 Acute kidney failure, unspecified; D62 Acute posthemorrhagic anemia; I12.9 Hypertensive chronic kidney disease with stage 1 through stage 4 chronic kidney disease, or unspecified chronic kidney disease; N18.3 Chronic kidney disease, stage 3 (moderate); Z79.899 Other long term (current) drug therapy; Z87.891 Personal history of nicotine dependence; Z82.49 Family history of ischemic heart disease and other diseases of the circulatory system